=== PATIENT | female | born 1955 | race Caucasian/White ===

== ENCOUNTER 2018-03-27 06:42 | Day surgery (SDC) | payer OTHER ==
[2018-03-27] MEDS ORDERED: Lactated Ringers 1,000 ML IV SCH (06:45)
--- NOTE | 2018-03-27 07:46 | PCM.HP ---
H&P History of Present Illness - General Date of Service: 03/27/18 Admit Problem/Dx: Admission Diagnosis/Problem Admission Diagnosis/Problem Colonoscopy Source of Information: Patient - History of Present Illness Initial Comments - Free Text/Narative: 62 yo wf who presents for a c scope. No complaints except for some spotting after a large bowel movement. last exam was 10 yrs ago and was negative - Related Data Allergies/Adverse Reactions: Allergies Allergy/AdvReac Type Severity Reaction Status Date / Time Sulfa (Sulfonamide Allergy Rash Verified 03/27/18 07:01 Antibiotics) Home Medications: Home Meds Acetaminophen [Tylenol] 1 - 2 tab PO Q4H PRN 03/26/18 [History] Aspirin [Halfprin] 81 mg PO DAILY 03/26/18 [History] Docusate Sodium/Sennosides [Senokot-S] 1 tab PO BID 03/26/18 [History] Ferrous Sulfate [Iron] 325 mg PO DAILY 03/26/18 [History] Hydroxychloroquine Sulfate [Plaquenil] 200 mg PO BID 03/26/18 [History] Lisinopril/Hydrochlorothiazide [Zestoretic 20-12.5 mg Tablet] 1 each PO DAILY [History] Meloxicam [Mobic] 7.5 mg PO DAILY 03/26/18 [History] Omeprazole Magnesium [Prilosec Otc] 20 mg PO DAILY 03/26/18 [History] Simvastatin [Zocor] 20 mg PO BEDTIME 03/26/18 [History] metroNIDAZOLE [Metrocream] 1 applic TP BID 03/26/18 [History] Past Medical History HEENT History: Reports: Impaired Vision Cardiovascular History: Reports: High Cholesterol, Hypertension Respiratory History: Reports: None Gastrointestinal History: Reports: None Genitourinary History: Reports: None [employer] History: Reports: Musculoskeletal History: Reports: Osteoarthritis, SLE Neurological History: Reports: None Psychiatric History: Reports: None Endocrine/Metabolic History: Reports: Obesity/BMI 30+, Other (See Below) Other Endocrine/Metabolic History: ABNORMAL LFTS Hematologic History: Reports: Blood Transfusion(s), Iron Deficiency Immunologic History: Reports: None Oncologic (Cancer) History: Reports: None Dermatologic History: Reports: Seborrheic Dermatitis, Other (See Below) Other Dermatologic History: ROSACEA - Past Surgical History Head Surgeries/Procedures: Reports: None HEENT Surgical History: Reports: Tonsillectomy Cardiovascular Surgical History: Reports: None Respiratory Surgical History: Reports: None GI Surgical History: Reports: Colonoscopy Female Surgical History: Reports: Section Endocrine Surgical History: Reports: None Neurological Surgical History: Reports: None Musculoskeletal Surgical History: Reports: Carpal Tunnel, Knee Replacement Other Musculoskeletal Surgeries/Procedures:: RIGHT GANGLION CYST REMOVAL WRIST, BILAT TOTAL KNEE REPLACEMENT Oncologic Surgical History: Reports: None Social & Family History - Tobacco Use Smoking Status *Q: Former Smoker - Caffeine Use Caffeine Use: Reports: Coffee - Recreational Drug Use Recreational Drug Use: No H&P Review of Systems - Review of Systems: Review Of Systems: See Below General: Reports: No Symptoms HEENT: Reports: No Symptoms Pulmonary: Reports: No Symptoms Cardiovascular: Reports: No Symptoms Gastrointestinal: Reports: Other (see hpi ) Genitourinary: Reports: No Symptoms Musculoskeletal: Reports: No Symptoms Exam - Exam Exam: See Below - Vital Signs Vital Signs: Last Vital Signs Temp 36.6 C 03/27/18 07:32 Pulse 89 03/27/18 07:32 Resp 16 03/27/18 07:32 BP 139/86 03/27/18 07:32 Pulse Ox 98 03/27/18 07:32 Weight: 112.8 kg - Exam General: Alert, Oriented Lungs: Clear to Auscultation, Normal Respiratory Effort Cardiovascular: Regular Rate, Regular Rhythm GI/Abdominal Exam: Normal Bowel Sounds, Soft, Non-Tender - Problem List (1) Screening for colon cancer SNOMED Code(s): 686429238, [id number] ICD Code: Z12.11 - ENCOUNTER FOR SCREENING FOR MALIGNANT NEOPLASM OF COLON Status: Acute Current Visit: Yes Problem List Initiated/Reviewed/Updated: Yes Orders Last 24hrs: Active Orders 24 hr Category Date Time Status Patient Status [ADT] Routine ADT 03/27/18 06:45 Ordered Patient to Empty Bladder [RC] ASDIRECTED Care 03/27/18 06:45 Active Verify Patient Consent Obtain [RC] ASDIRECTED Care 03/27/18 06:45 Active Nothing Per Oral Diet [DIET] Diet 03/26/18 Dinner Ordered Lactated Ringers [Ringers, Lactated] 1,000 ml Med 03/27/18 06:45 Active IV ASDIRECTED Peripheral IV Insertion Adult [OM.PC] Routine Oth 03/27/18 06:45 Ordered Resuscitation Status Routine Resus Stat 03/26/18 11:43 Ordered Medication Orders Lactated Ringer's (Ringers, Lactated) 1,000 mls @ 125 mls/hr IV ASDIRECTED OIB Assessment/Plan Comment:: for c scope proceedure and risks were explained to the pt to include bleeding, infection, perforation. she asks us to proceed.
[2018-03-27] MEDS ORDERED: Propofol 200 MG/20 ML SDV IV ONE (08:00)
[2018-03-27] MEDS ORDERED: fentaNYL 100 MCG/2 ML SDV IV ONE (08:00)
[2018-03-27] MEDS ORDERED: Midazolam 1 MG/ML 2 ML SDV IV ONE (08:00)
--- NOTE | 2018-03-27 08:23 | PCM.OPNOTE ---
- General Post-Op/Procedure Note Date of Surgery/Procedure: 03/27/18 Operative Procedure(s): c scope Findings: rectal polyp internal hemorrhoids Pre Op Diagnosis: screening Post-Op Diagnosis: rectal polyp. internal hemorrhoids Anesthesia Technique: MAC Primary Surgeon: Husam Peñaloza Anesthesia Provider: Tomás Hernandez Pathology: rectal polyp Complications: None Condition: Good Free Text/Narrative:: see dictation
--- NOTE | 2018-03-27 08:37 | OR ---
DATE OF OPERATION: 03/27/2018 SURGEON: Husam Peñaloza MD PROCEDURE PERFORMED: Colonoscopy with cold forceps biopsy. PREOPERATIVE DIAGNOSIS: Colon cancer screening. POSTOPERATIVE DIAGNOSES: Rectal polyp and internal hemorrhoids. INDICATIONS FOR PROCEDURE: This is a 62-year-old white female who presents for a screening colonoscopy. She was offered and accepted same. DESCRIPTION OF OPERATION: After an excellent IV sedation was administered, digital rectal exam was performed. No marked abnormality was noted. Flexible colonoscope was inserted and advanced to the cecum without difficulty. The prep was excellent. The following findings were noted. Ascending colon, unremarkable. Transverse colon, unremarkable. Descending colon, unremarkable. Rectum, approximately 12 cm small hyperplastic appearing polyp, biopsied and sent for permanent. Retroflexed scope demonstrates hemorrhoidal tissue, appears to be grade 1. Colon was deflated. Scope was removed. The patient tolerated the procedure well, and was taken to recovery in good condition. /[id number] /MODL
== END 2018-03-27 09:25 | disposition home or self-care (01) ==
LOC: FB.SDS 06:42
PROVIDERS: ATTEND Surgery
DX: Z12.11 Encounter for screening for malignant neoplasm of colon (principal); K63.5 Polyp of colon; K64.8 Other hemorrhoids; I10 Essential (primary) hypertension; M19.91 Primary osteoarthritis, unspecified site; D50.9 Iron deficiency anemia, unspecified; M32.9 Systemic lupus erythematosus, unspecified; Z79.1 Long term (current) use of non-steroidal anti-inflammatories (NSAID); Z79.2 Long term (current) use of antibiotics; Z79.82 Long term (current) use of aspirin; Z79.899 Other long term (current) drug therapy; Z88.2 Allergy status to sulfonamides
CPT/HCPCS: 00811; 45380; 88305; J2250; J2704; J3010; J7120

== ENCOUNTER 2021-09-12 08:07 | Day surgery (SDC) | payer MEDICARE, BC ==
[~2021-09-12 08:07] MED LIST: Lactated Ringers 1,000 ML IV PRN; Sodium Chloride 0.9% 10 ML Syringe FLUSH PRN
[2021-09-12] MEDS ORDERED: Midazolam 1 MG/ML 2 ML SDV IV ONE (08:08)
[2021-09-12] MEDS ORDERED: fentaNYL 100 MCG/2 ML SDV IV ONE (08:08)
[2021-09-12] MEDS ORDERED: acetaZOLAMIDE 500 MG Cap.ER PO ONE (10:00)
--- NOTE | 2021-09-12 12:54 | OR ---
DATE OF OPERATION: 09/12/2021 SURGEON: Mirna Levy MD PREOPERATIVE DIAGNOSIS: Visually significant cataract, right eye. POSTOPERATIVE DIAGNOSIS: Visually significant cataract, right eye. PROCEDURES PERFORMED: Phacoemulsification with intraocular lens placement, right eye. ASSISTANTS: None. ANESTHESIA: Local with sedation. COMPLICATIONS: None. BLOOD LOSS: None. IMPLANTS: A preloaded DCB00 19.0 diopter lens implanted. CDE: 4.70. DESCRIPTION OF PROCEDURE: After risks and benefits were reviewed with the patient, consent was obtained in the preoperative area, and the operative eye was marked with a surgical pen. In the preoperative area, a pledget was used to dilate the pupil consisting of a mixture of phenylephrine 10%, cyclopentolate 2%, moxifloxacin 0.5%, and bupivacaine 0.75%. The patient was taken to the operating room, where a time-out was performed, and the patient was placed under monitored anesthesia care. Topical tetracaine was used for anesthesia. The operative eye was prepped and draped for ophthalmic surgery, and the microscope was brought into position and focused. A paracentesis incision was made, followed by injection of preservative-free 1% lidocaine into the anterior chamber, followed by injection of Viscoat into the anterior chamber. A microkeratome blade was used to make a corneal limbal incision temporally. A cystotome was used to make the beginning of the capsulorrhexis, which was carried around 360 degrees in a curvilinear fashion using Utrata forceps. A Cruz cannula with BSS was used to hydrodissect and hydrodelineate the nucleus. The nucleus was removed in a divide and conquer manner using phacoemulsification. Irrigation and aspiration were used to remove the remaining cortical material. Provisc was used to inflate the capsular bag, and a pre-loaded DCB00 19.0 diopter lens, serial number [id number] was injected into the capsular bag. A Sinskey hook was used to position and center the lens. Next, irrigation and aspiration was used to remove any remaining viscoelastic and cortical material from the anterior chamber. BSS on a cannula was used to inflate the anterior chamber and hydrate the wound. The wound was checked and found to be watertight. 1 mg of Moxifloxacin was injected into the anterior chamber. Drapes were removed and the eye was cleaned. A drop of brimonidine 0.2% and a drop of TobraDex was placed. The eye was shielded, and the patient was taken to the recovery room in stable condition. /[id number] ROBERT/ARTIE
== END 2021-09-12 10:30 | disposition home or self-care (01) ==
LOC: FB.SDS 08:07
PROVIDERS: ATTEND Ophthalmology
DX: H25.813 Combined forms of age-related cataract, bilateral (principal); H18.593 Other hereditary corneal dystrophies, bilateral; H18.513 Endothelial corneal dystrophy, bilateral; H43.813 Vitreous degeneration, bilateral; H02.881 Meibomian gland dysfunction right upper eyelid; H02.884 Meibomian gland dysfunction left upper eyelid; H52.223 Regular astigmatism, bilateral; I10 Essential (primary) hypertension; E78.5 Hyperlipidemia, unspecified; M32.9 Systemic lupus erythematosus, unspecified; F41.9 Anxiety disorder, unspecified; E66.01 Morbid (severe) obesity due to excess calories; L40.9 Psoriasis, unspecified; F43.21 Adjustment disorder with depressed mood; Z68.41 Body mass index [BMI] 40.0-44.9, adult; Z79.899 Other long term (current) drug therapy; Z79.82 Long term (current) use of aspirin; Z88.2 Allergy status to sulfonamides; Z98.890 Other specified postprocedural states; Z87.891 Personal history of nicotine dependence
CPT/HCPCS: 00142; 66984; A9270; J2250; J3010; V2632

== ENCOUNTER 2021-10-10 09:02 | Day surgery (SDC) | payer MEDICARE, BC ==
[2021-10-10] MEDS ORDERED: Midazolam 1 MG/ML 2 ML SDV IV ONE (09:03)
[2021-10-10] MEDS ORDERED: fentaNYL 100 MCG/2 ML SDV IV ONE (09:03)
[2021-10-10] MEDS ORDERED: acetaZOLAMIDE 500 MG Cap.ER PO ONE (11:00)
--- NOTE | 2021-10-10 12:00 | OR ---
DATE OF OPERATION: 10/10/2021 SURGEON: Mirna Levy MD PREOPERATIVE DIAGNOSIS: Visually significant cataract, right eye. POSTOPERATIVE DIAGNOSIS: Visually significant cataract, right eye. PROCEDURES PERFORMED: Phacoemulsification with intraocular lens placement, right eye. ASSISTANTS: None. ANESTHESIA: Local with sedation. COMPLICATIONS: None. BLOOD LOSS: None. IMPLANTS: A pre-loaded DCB00 18.5 diopter lens implanted. CDE: 3.32. DESCRIPTION OF PROCEDURE: After risks and benefits were reviewed with the patient, consent was obtained in the preoperative area, and the operative eye was marked with a surgical pen. In the preoperative area, a pledget was used to dilate the pupil consisting of a mixture of phenylephrine 10%, cyclopentolate 2%, moxifloxacin 0.5%, and bupivacaine 0.75%. The patient was taken to the operating room, where a time-out was performed, and the patient was placed under monitored anesthesia care. Topical tetracaine was used for anesthesia. The operative eye was prepped and draped for ophthalmic surgery, and the microscope was brought into position and focused. A paracentesis incision was made, followed by injection of preservative-free 1% lidocaine into the anterior chamber, followed by injection of Viscoat into the anterior chamber. A microkeratome blade was used to make a corneal limbal incision temporally. A cystotome was used to make the beginning of the capsulorrhexis, which was carried around 360 degrees in a curvilinear fashion using Utrata forceps. A Cruz cannula with BSS was used to hydrodissect and hydrodelineate the nucleus. The nucleus was removed in a divide and conquer manner using phacoemulsification. Irrigation and aspiration were used to remove the remaining cortical material. Provisc was used to inflate the capsular bag, and a pre-loaded DCB00 18.5 diopter lens, serial number [id number] was injected into the capsular bag. A Sinskey hook was used to position and center the lens. Next, irrigation and aspiration was used to remove any remaining viscoelastic and cortical material from the anterior chamber. BSS on a cannula was used to inflate the anterior chamber and hydrate the wound. The wound was checked and found to be watertight. 1 mg of Moxifloxacin was injected into the anterior chamber. Drapes were removed and the eye was cleaned. A drop of brimonidine 0.2% and a drop of TobraDex was placed. The eye was shielded, and the patient was taken to the recovery room in stable condition. /[id number] ROBERT/ARTIE
== END 2021-10-10 12:00 | disposition home or self-care (01) ==
LOC: FB.SDS 09:02
PROVIDERS: ATTEND Ophthalmology
DX: H25.813 Combined forms of age-related cataract, bilateral (principal); H18.593 Other hereditary corneal dystrophies, bilateral; H18.513 Endothelial corneal dystrophy, bilateral; H43.813 Vitreous degeneration, bilateral; H02.881 Meibomian gland dysfunction right upper eyelid; H02.884 Meibomian gland dysfunction left upper eyelid; H52.223 Regular astigmatism, bilateral; I10 Essential (primary) hypertension; E78.5 Hyperlipidemia, unspecified; M32.9 Systemic lupus erythematosus, unspecified; F41.9 Anxiety disorder, unspecified; E66.01 Morbid (severe) obesity due to excess calories; Z79.899 Other long term (current) drug therapy; K21.9 Gastro-esophageal reflux disease without esophagitis; Z88.2 Allergy status to sulfonamides; Z98.890 Other specified postprocedural states; Z87.891 Personal history of nicotine dependence; Z68.41 Body mass index [BMI] 40.0-44.9, adult
CPT/HCPCS: 00142-QZ; A9270-GY; J2250; J3010; V2632